=== PATIENT | male | born 1990 | race Caucasian/White ===

== ENCOUNTER 2018-07-26 06:51 | Emergency (ER) | payer OTHER ==
[~2018-07-26] VITALS: Ht 177.8 cm; Wt 122.5 kg
[~2018-07-26 06:51] MED LIST: ACET500 PO; ALBIPROI INH; ALBU3IS INH; ALBU90OI INH; ALPR1 PO; ASPI325EC PO; HYDACE5 PO; IBUP600 PO; IBUP800 PO; META800 PO; NAPR500EC PO; NO RX MEDS; OXYACE7.5T PO; OXYC5 PO; PANT20 PO; Percocet 5-3251 EACH PO; Prednisone20 MG PO; RXOXYACE PO; TRAM50 PO; Zithromax250 MG PO
[2018-07-26] MEDS ORDERED: Oxycodone HCl20 M1 PO (07:09)
[2018-07-26] MEDS ORDERED: ESCI10 PO (07:09)
[2018-07-26 07:53] LABS: BASOPHILS ABSOLUTE AUTO 0.05 K/mm3 (0.00-0.23); BASOPHILS PERCENT AUTO 1 % (0-2); EOSINOPHILS ABSOLUTE AUTO 0.94 K/mm3 (0.00-0.68); EOSINOPHILS PERCENT AUTO 9 % (0-6); Hematocrit 41.7 % (37.0-53.0); Hemoglobin 13.7 g/dL (13.5-17.5); IMMATURE GRAN ABSOLUTE AUTO 0.04 K/mm3 (0.00-0.10); IMMATURE GRAN PERCENT AUTO 0 % (0-1); LYMPHOCYTES ABSOLUTE AUTO 2.63 K/mm3 (0.84-5.20); LYMPHOCYTES PERCENT AUTO 24 % (21-46); MONOCYTES ABSOLUTE AUTO 0.89 K/mm3 (0.16-1.47); MONOCYTES PERCENT AUTO 8 % (4-13); Mean Corpuscular HGB 27.5 pg (26.0-34.0); Mean Corpuscular HGB Conc 32.9 g/dL (31.5-36.5); Mean Corpuscular Volume 84 fL (80-100); Mean Platelet Volume 9.5 fL (9.1-12.4); NEUTROPHILS ABSOLUTE AUTO 6.23 K/mm3 (1.96-9.15); NEUTROPHILS PERCENT AUTO 58 % (41-73); Platelet Count 333 K/mm3 (150-400); RDW Coefficient Variation 12.9 % (11.7-14.2); Red Blood Cell Count 4.99 M/mm3 (4.30-5.90); White Blood Cell Count 10.78 K/mm3 (4.00-11.30)
[2018-07-26 08:15] LABS: Alanine Aminotransfer (ALT/SGP 25 U/L (12-78); Albumin, Blood 3.5 g/dL (3.4-5.0); Albumin/Globulin Ratio 1.1 (0.8-1.8); Alk Phos 94 U/L (50-136); Anion Gap 8 mmol/L (6-16); Aspartate Aminotrans (AST/SGOT 13 U/L (12-37); Bilirubin, Total 0.4 mg/dL (0.1-1.0); Blood Urea Nitrogen 13 mg/dL (8-24); Bun/Creatinine Ratio 17.4 (12.0-20.0); CO2, Blood 27 mmol/L (21-32); Calcium, Blood 8.4 mg/dL (8.5-10.1); Chloride, Blood 105 mmol/L (98-108); Creatinine, Blood 0.75 mg/dL (0.60-1.20); Globulin, Blood 3.2 g/dL (2.2-4.0); Glomerular Filtration Rate >60 (60-); Glucose, Blood 107 mg/dL (70-99); Potassium, Blood 3.2 mmol/L (3.5-5.5); Sodium, Blood 140 mmol/L (136-145); Total Protein, Blood 6.7 g/dL (6.4-8.2); Troponin I <0.015 ng/mL (0.000-0.040)
[2018-07-26 09:04] LABS: Source, Urine Clean Catch
[2018-07-26 09:09] LABS: Bilirubin, Urine Neg (Neg); Blood, Urine Neg (Neg); Glucose Qualitative, Urine Neg (Neg); Ketones, Urine Neg (Neg); Leukocyte Esterase, Urine Neg (Neg); Nitrite, Urine Neg (Neg); Protein, Urine Neg (Neg); Urobilinogen, Urine NORM (Normal)
[2018-07-26 09:27] LABS: Appearance, Urine Clear (Clear); Color, Urine Yellow (P-Yellow)
[2018-07-26] MEDS ORDERED: K-Dur 20 meq T20 MEQ PO (09:59)
== END 2018-07-26 10:06 | disposition home or self-care (01) ==
LOC: ER 06:51
PROVIDERS: Physician Assistant
DX: R00.2 Palpitations (principal); E87.6 Hypokalemia; Z79.899 Other long term (current) drug therapy; Z87.891 Personal history of nicotine dependence
CPT/HCPCS: 36415; 71046; 80053; 81003; 84484; 85025; 93005; 93010; 99285-25

== ENCOUNTER 2018-07-31 05:01 | Emergency (ER) | payer OTHER ==
[~2018-07-31] VITALS: Ht 175.3 cm; Wt 122.5 kg
[~2018-07-31 05:01] MED LIST changes: +ESCI10 PO; +K-Dur 20 meq T20 MEQ PO; +Oxycodone HCl20 M1 PO
[2018-07-31 05:57] LABS: BASOPHILS ABSOLUTE AUTO 0.04 K/mm3 (0.00-0.23); BASOPHILS PERCENT AUTO 0 % (0-2); EOSINOPHILS ABSOLUTE AUTO 0.34 K/mm3 (0.00-0.68); EOSINOPHILS PERCENT AUTO 3 % (0-6); Hematocrit 43.9 % (37.0-53.0); Hemoglobin 14.5 g/dL (13.5-17.5); IMMATURE GRAN ABSOLUTE AUTO 0.03 K/mm3 (0.00-0.10); IMMATURE GRAN PERCENT AUTO 0 % (0-1); LYMPHOCYTES ABSOLUTE AUTO 1.89 K/mm3 (0.84-5.20); LYMPHOCYTES PERCENT AUTO 18 % (21-46); MONOCYTES ABSOLUTE AUTO 0.86 K/mm3 (0.16-1.47); MONOCYTES PERCENT AUTO 8 % (4-13); Mean Corpuscular HGB 27.2 pg (26.0-34.0); Mean Corpuscular Volume 82 fL (80-100); Mean Platelet Volume 9.9 fL (9.1-12.4); NEUTROPHILS ABSOLUTE AUTO 7.35 K/mm3 (1.96-9.15); NEUTROPHILS PERCENT AUTO 70 % (41-73); Platelet Count 337 K/mm3 (150-400); RDW Coefficient Variation 12.9 % (11.7-14.2); RDW Standard Deviation 38.4 fL (35.1-46.3); Red Blood Cell Count 5.34 M/mm3 (4.30-5.90); White Blood Cell Count 10.51 K/mm3 (4.00-11.30)
[2018-07-31 06:23] LABS: Alanine Aminotransfer (ALT/SGP 25 U/L (12-78); Albumin, Blood 3.9 g/dL (3.4-5.0); Albumin/Globulin Ratio 1.1 (0.8-1.8); Alk Phos 100 U/L (50-136); Anion Gap 10 mmol/L (6-16); Aspartate Aminotrans (AST/SGOT 16 U/L (12-37); Bilirubin, Total 0.5 mg/dL (0.1-1.0); Blood Urea Nitrogen 13 mg/dL (8-24); Bun/Creatinine Ratio 18.7 (12.0-20.0); CO2, Blood 25 mmol/L (21-32); Chloride, Blood 104 mmol/L (98-108); Creatinine, Blood 0.69 mg/dL (0.60-1.20); Globulin, Blood 3.7 g/dL (2.2-4.0); Glomerular Filtration Rate >60 (60-); Glucose, Blood 102 mg/dL (70-99); Potassium, Blood 3.8 mmol/L (3.5-5.5); Sodium, Blood 139 mmol/L (136-145); Total Protein, Blood 7.6 g/dL (6.4-8.2)
[2018-07-31] MEDS ORDERED: Protonix40 MG PO (07:04)
== END 2018-07-31 07:16 | disposition home or self-care (01) ==
LOC: ER 05:01
PROVIDERS: Emergency Medicine
DX: Z87.891 Personal history of nicotine dependence (principal)
CPT/HCPCS: 36415; 80053; 83690; 85025; 93005; 93010; 99284-25; C9113; J2405

== ENCOUNTER 2019-12-05 00:24 | Emergency (ER) | payer OTHER ==
[~2019-12-05] VITALS: Ht 177.8 cm; Wt 117.9 kg
[~2019-12-05 00:24] MED LIST changes: +Protonix40 MG PO
== END 2019-12-05 01:25 | disposition left against medical advice (07) ==
LOC: ER 00:24
DX: S60.511A Abrasion of right hand, initial encounter (principal); F17.200 Nicotine dependence, unspecified, uncomplicated; W26.9XXA Contact with unspecified sharp object(s), initial encounter
CPT/HCPCS: 99283

== ENCOUNTER → 2020-01-10 | Outpatient (CLI) | payer OTHER | END | disposition home or self-care (01) | LOC: LAB SHORT 15:27 → LAB EV 15:27 | DX: J06.9 Acute upper respiratory infection, unspecified (principal); Z20.828 Contact with and (suspected) exposure to other viral communicable diseases | CPT/HCPCS: U0003 ==

== ENCOUNTER 2020-08-04 01:15 | Emergency (ER) | payer OTHER ==
[~2020-08-04] VITALS: Ht 177.8 cm; Wt 122.5 kg
== END 2020-08-04 03:16 | disposition home or self-care (01) ==
LOC: ER 01:15
DX: S86.811A Strain of other muscle(s) and tendon(s) at lower leg level, right leg, initial encounter (principal); F17.200 Nicotine dependence, unspecified, uncomplicated; X50.1XXA Overexertion from prolonged static or awkward postures, initial encounter; Y92.89 Other specified places as the place of occurrence of the external cause; Y99.0 Civilian activity done for income or pay
CPT/HCPCS: 29505; 73562-RT; 96372-59; 99283-25; A9270; J1885

== ENCOUNTER 2022-01-10 16:06 | Emergency (ER) | payer OTHER ==
[~2022-01-10] VITALS: Ht 175.3 cm; Wt 117.9 kg
== END 2022-01-10 19:06 | disposition left against medical advice (07) ==
LOC: ER 16:06
DX: R11.2 Nausea with vomiting, unspecified (principal); R07.9 Chest pain, unspecified; R20.0 Anesthesia of skin; R19.7 Diarrhea, unspecified; Z53.21 Procedure and treatment not carried out due to patient leaving prior to being seen by health care provider
CPT/HCPCS: 99281

== ENCOUNTER 2023-05-30 14:30 | Emergency (ER) | payer OTHER ==
[~2023-05-30] VITALS: Ht 172.7 cm; Wt 115.7 kg
[2023-05-30 14:44] VITALS: BP 141/89
[2023-05-30 16:18] LABS: BASOPHILS ABSOLUTE AUTO 0.04 K/mm3 (0.00-0.23); BASOPHILS PERCENT AUTO 0 % (0-2); EOSINOPHILS ABSOLUTE AUTO 0.09 K/mm3 (0.00-0.68); EOSINOPHILS PERCENT AUTO 1 % (0-6); Hematocrit 47.3 % (37.0-53.0); Hemoglobin 15.3 g/dL (13.5-17.5); IMMATURE GRAN ABSOLUTE AUTO 0.04 K/mm3 (0.00-0.10); IMMATURE GRAN PERCENT AUTO 0 % (0-1); LYMPHOCYTES ABSOLUTE AUTO 2.08 K/mm3 (0.84-5.20); LYMPHOCYTES PERCENT AUTO 20 % (21-46); MONOCYTES ABSOLUTE AUTO 1.29 K/mm3 (0.16-1.47); MONOCYTES PERCENT AUTO 13 % (4-13); Mean Corpuscular HGB 27.6 pg (26.0-34.0); Mean Corpuscular HGB Conc 32.3 g/dL (31.5-36.5); Mean Corpuscular Volume 85 fL (80-100); Mean Platelet Volume 9.3 fL (9.1-12.4); NEUTROPHILS ABSOLUTE AUTO 6.72 K/mm3 (1.96-9.15); NEUTROPHILS PERCENT AUTO 65 % (41-73); Platelet Count 348 K/mm3 (150-400); RDW Coefficient Variation 12.8 % (11.7-14.2); RDW Standard Deviation 40.1 fL (35.1-46.3); Red Blood Cell Count 5.54 M/mm3 (4.30-5.90); White Blood Cell Count 10.26 K/mm3 (4.00-11.30)
[2023-05-30 16:38] LABS: Albumin, Blood 3.9 g/dL (3.4-5.0); Bilirubin, Total 0.7 mg/dL (0.1-1.0); Bun/Creatinine Ratio 15.8 (12.0-20.0); Calcium, Blood 9.3 mg/dL (8.5-10.1); Creatinine, Blood 0.63 mg/dL (0.60-1.20); Potassium, Blood 3.9 mmol/L (3.5-5.5); Total Protein, Blood 7.9 g/dL (6.4-8.2)
[2023-05-30] MEDS ORDERED: CEPH500 PO (16:49)
[2023-05-31] MEDS ORDERED: Percocet 10-321 EACH PO (13:32)
== END 2023-05-30 17:30 | disposition home or self-care (01) ==
LOC: ER 14:30
PROVIDERS: Physician Assistant
DX: L02.512 Cutaneous abscess of left hand (principal); S60.852A Superficial foreign body of left wrist, initial encounter; F17.200 Nicotine dependence, unspecified, uncomplicated; X58.XXXA Exposure to other specified factors, initial encounter; Z96.641 Presence of right artificial hip joint
CPT/HCPCS: 10120; 73110; 73130; 73201; 80053; 85025; 96365-59; 96374-59; 99284-25; J0696; Q9967

== ENCOUNTER 2023-05-31 11:19 | Inpatient (IN) | payer OTHER ==
[~2023-05-31] VITALS: Ht 175.3 cm; Wt 116.7 kg
[~2023-05-31 11:19] MED LIST changes: +CEPH500 PO
[2023-05-31 12:35] LABS: BASOPHILS ABSOLUTE AUTO 0.03 K/mm3 (0.00-0.23); BASOPHILS PERCENT AUTO 0 % (0-2); EOSINOPHILS ABSOLUTE AUTO 0.03 K/mm3 (0.00-0.68); EOSINOPHILS PERCENT AUTO 0 % (0-6); Hemoglobin 15.4 g/dL (13.5-17.5); IMMATURE GRAN ABSOLUTE AUTO 0.03 K/mm3 (0.00-0.10); IMMATURE GRAN PERCENT AUTO 0 % (0-1); LYMPHOCYTES ABSOLUTE AUTO 1.15 K/mm3 (0.84-5.20); LYMPHOCYTES PERCENT AUTO 12 % (21-46); MONOCYTES ABSOLUTE AUTO 1.08 K/mm3 (0.16-1.47); MONOCYTES PERCENT AUTO 11 % (4-13); Mean Corpuscular HGB 27.9 pg (26.0-34.0); Mean Corpuscular HGB Conc 32.8 g/dL (31.5-36.5); Mean Corpuscular Volume 85 fL (80-100); Mean Platelet Volume 9.5 fL (9.1-12.4); NEUTROPHILS ABSOLUTE AUTO 7.14 K/mm3 (1.96-9.15); NEUTROPHILS PERCENT AUTO 76 % (41-73); Platelet Count 366 K/mm3 (150-400); RDW Coefficient Variation 12.9 % (11.7-14.2); RDW Standard Deviation 40.2 fL (35.1-46.3); Red Blood Cell Count 5.52 M/mm3 (4.30-5.90); White Blood Cell Count 9.46 K/mm3 (4.00-11.30)
[2023-05-31 12:48] LABS: Albumin, Blood 4.1 g/dL (3.4-5.0); Albumin/Globulin Ratio 0.9 (0.8-1.8); Bilirubin, Total 0.8 mg/dL (0.1-1.0); Bun/Creatinine Ratio 17.5 (12.0-20.0); Calcium, Blood 9.4 mg/dL (8.5-10.1); Creatinine, Blood 0.63 mg/dL (0.60-1.20); Globulin, Blood 4.4 g/dL (2.2-4.0); Potassium, Blood 3.8 mmol/L (3.5-5.5); Total Protein, Blood 8.5 g/dL (6.4-8.2)
[2023-05-31] MEDS ORDERED: Percocet 10-321 EACH PO (13:32)
[2023-05-31 15:55] VITALS: BP 146/79
--- NOTE | 2023-05-31 19:14 | NUR ---
SHIFT SUMMARY S/P L HAND CELLULITIS, A/OX4, VSS, TOLERATING PO, INDEPENDENT IN HIS ROOM, ABLE TO MAKE NEEDS KNOWN, MEDICATING FOR PAIN PER EMAR. NO ACUTE EVENTS THIS SHIFT, CALL LIGHT IN REACH.
[2023-05-31 20:57] VITALS: BP 137/83
[2023-06-01 02:37] VITALS: BP 111/67
[2023-06-01 04:05] LABS: Hematocrit 40.9 % (37.0-53.0); Hemoglobin 13.5 g/dL (13.5-17.5); Mean Corpuscular HGB 27.8 pg (26.0-34.0); Mean Corpuscular Volume 84 fL (80-100); Mean Platelet Volume 9.3 fL (9.1-12.4); Platelet Count 303 K/mm3 (150-400); RDW Coefficient Variation 12.8 % (11.7-14.2); RDW Standard Deviation 39.5 fL (35.1-46.3); Red Blood Cell Count 4.86 M/mm3 (4.30-5.90); White Blood Cell Count 8.42 K/mm3 (4.00-11.30)
[2023-06-01 04:31] LABS: Bun/Creatinine Ratio 23.3 (12.0-20.0); Calcium, Blood 8.7 mg/dL (8.5-10.1); Creatinine, Blood 0.65 mg/dL (0.60-1.20); Potassium, Blood 3.3 mmol/L (3.5-5.5)
--- NOTE | 2023-06-01 04:39 | NUR ---
SHIFT SUMMARY VSS. PT HAS NOT SLEPT T/O THE NIGHT D/T PAIN. DIFFICULT PAIN CONTROL NOTED, ROTATING COLD AND HEAT THERAPY, ALONG SIDE DILAUDID, OXY, TORADOL, AND TYLENOL. CIRCULATION AND SENSATION REMAINS INTACT IN LEFT HAND. REDDNESS OF THE HAND APPEARS TO HAVE RECEEDED BUT SWELLING HAS INCREASED, PT STRUGGLING TO KEEP EXTREMITY ELEVATED. VOIDING W/O DIFFICULTY AND TOLLERATED PO INTAKE W/O N/V. PT BECAME NPO AT 0300 FOR POSSIBLE TRANSFER FOR PROCEEDURE TODAY. NO ACUTE EVENTS NOTED.
[2023-06-01 07:13] VITALS: BP 120/67
[2023-06-01 12:43] LABS: Vancomycin, Trough 9.4 ug/mL (5.0-10.0)
[2023-06-01 16:11] VITALS: BP 132/78
--- NOTE | 2023-06-01 18:50 | NUR ---
SHIFT SUMMARY S/P L HAND CELLULITIS, A/OX4, VSS, TOLERATING PO, PAIN WELL MANAGED WITH PATIENT REPORTING A SLOW REDUCTION IN HIS OVERALL PAIN T/O THE SHIFT TODAY, SWELLING AND REDNESS LOOK TO BE LOWER THAN THEY WERE YESTERDAY WHEN HE WAS ADMITTED. NO ACUTE EVENTS THIS SHIFT, CALL LIGHT IN REACH.
[2023-06-01 20:18] VITALS: BP 128/77
[2023-06-02 05:50] VITALS: BP 142/90
[2023-06-02 05:58] LABS: Hematocrit 39.6 % (37.0-53.0); Hemoglobin 12.7 g/dL (13.5-17.5); Mean Corpuscular HGB 27.8 pg (26.0-34.0); Mean Corpuscular HGB Conc 32.1 g/dL (31.5-36.5); Mean Corpuscular Volume 87 fL (80-100); Mean Platelet Volume 9.5 fL (9.1-12.4); Platelet Count 298 K/mm3 (150-400); RDW Coefficient Variation 12.5 % (11.7-14.2); RDW Standard Deviation 39.8 fL (35.1-46.3); Red Blood Cell Count 4.57 M/mm3 (4.30-5.90); White Blood Cell Count 9.13 K/mm3 (4.00-11.30)
--- NOTE | 2023-06-02 06:09 | NUR ---
SHIFT SUMMARY VSS. PT GOT MINIMAL SLEEP T/O THE NIGHT. PT REPORTS PAIN CONTROL IS SLIGHTLY BETTER, BUT HE REMAINS ON THE UPPER END OF THE PAIN SCALE 6-8. REDDNESS HAS SIGNIFIGANTLY IMPROVED, BUT SWELLING REMAINS. LIMMITED ROM IN WRIST D/T THIS. PT SWITCHED BETWEEN ICE AND HEAT T/O THE NIGHT. PT HAS BEEN NPO SINCE 0000 FOR POTENTIAL ORTHO CONSULT TODAY. NO ACUTE EVENTS NOTED.
[2023-06-02 06:24] LABS: Bun/Creatinine Ratio 24.8 (12.0-20.0); Calcium, Blood 8.5 mg/dL (8.5-10.1); Creatinine, Blood 0.61 mg/dL (0.60-1.20); Potassium, Blood 3.8 mmol/L (3.5-5.5)
[2023-06-02 07:15] VITALS: BP 133/74
[2023-06-02 14:25] LABS: Vancomycin, Trough 11.5 ug/mL (5.0-10.0)
[2023-06-02 14:45] VITALS: BP 136/85
--- NOTE | 2023-06-02 18:11 | NUR ---
PT REPORTED THAT HE ONLY WANTS STAFF TO TALK WITH HIS MOTHER. PT DECLINED TO SET UP A CODE WORD FOR SAFETY. HE ALSO STATES THE PERSON HE WAS CONCERNED ABOUT TRYING TO GET INFORMATION SHOULD NO LONGER BE ATTEMPTING TO CALL.
[2023-06-02 19:13] VITALS: BP 133/69
--- NOTE | 2023-06-02 19:37 | NUR ---
SHIFT SUMMARY PT IS TOLERATING IV ABX WELL. PT REPORTS IMPROVED ROM TO L HAND. PAIN MANAGED WITH OXY, TYLENOL, DILAUDID AND TORADOL. PT IS INDEPENDENT IN THE ROOM. REPORT GIVEN TO KATHERIN KATE.
--- NOTE | 2023-06-03 00:17 | NUR ---
T/C PLACED TO PHARMACY. SPOKE WITH PHARMACIST CALVIN REGARDING VANCO ABX. PT'S IV INFILTRATED IN LEFT ARM AND ADMINISTRATION STOPPED. PT HAD A POWERGLIDE PLACED IN RIGHT UPPER EXTREMITY. VANCO RESTARTED AT 0004. NOTIFIED CALVIN AND SHE STATED SHE WOULD UPDATE THE ADMIN TIME IN THE EMAR. THIS RN ADJUSTED AND UPDATED THE EMAR TO REFLECT TIME OF VANCO ADMIN.
[2023-06-03 02:32] VITALS: BP 143/95
--- NOTE | 2023-06-03 04:47 | NUR ---
SHIFT SUMMARY NOC. PT A/O X4 THIS SHIFT. PT INDEPENDENT IN THE ROOM AND IS VOIDING. PT TOLERATING PO INTAKE. PT HAD A POWERGLIDE PLACED IN RIGHT UPPER EXTREMITY THIS SHIFT. PT MEDICATED FOR PAIN WITH DIFFICULTY GETTING PAIN DOWN. PT REPORTED GOOD RELIEF WITH DILAUDID. LEFT HAND SWELLING AND REDNESS APPEARS TO HAVE IMPROVED. PT REPORTS IMPROVED ROM AND DENIES N/T. PT RESTED FOR BREIF PERIODS WITH CALL LIGHT IN REACH.
--- NOTE | 2023-06-03 14:01 | NUR ---
REPORT GIVEN TO MELISA KATE. PT SITTING IN BED AT TIME OF REPORT. CALL LIGHT WITHIN REACH. PT DENIED QUESTIONS/CONCERNS.
--- NOTE | 2023-06-03 14:01 | NUR ---
ASSUMED CARE OF PT FROM JASPER Proctor RN PT SITTING ON EDGE OF BED, DENIES ANY NEEDS AT THIS TIME. INDEPENDENT IN ROOM.
--- NOTE | 2023-06-03 15:24 | NUR ---
02 SATS 02 SATS 87% ON 2L. 02 INCREASED BACK TO 3L. SATS NOW 91%. PT HAS BEEN ENCOURAGED TO AMBULATED IN ROOM AND USE IS.
[2023-06-03 16:09] LABS: Vancomycin, Trough 13.2 ug/mL (5.0-10.0)
[2023-06-03 16:23] VITALS: BP 141/86
--- NOTE | 2023-06-03 18:10 | NUR ---
SUMMARY NO ACUTE CHANGES SINCE TAKING OVER CARE OF PT. INDEPENDENT IN ROOM. IV ABX INFUSING PER ORDERS. MEDICATED PER ORDERS FOR PAIN. CALL LIGHT IN REACH.
[2023-06-03 19:55] VITALS: BP 138/89
[2023-06-04 02:08] VITALS: BP 146/85
--- NOTE | 2023-06-04 05:01 | NUR ---
SHIFT SUMMARY NOC. PT A/O X4. PT MEDICATED FOR PAIN WITH IMPROVED RELIEF. PT HAS IMPROVED SWELLING, REDNESS, AND IMPROVED RANGE OF MOTION IN HIS LEFT HAND. PT INDEPENDENT IN THE ROOM AND CALLS APPROPRIATLY. PT RESTED BRIEF PERIODS WITH CALL LIGHT IN REACH.
[2023-06-04 07:46] VITALS: BP 110/78
[2023-06-04] MEDS ORDERED: HYDR1TAB94 PO (12:15)
[2023-06-04] MEDS ORDERED: SULTRIDS PO (12:16)
--- NOTE | 2023-06-04 12:46 | NUR ---
DISCHARGE PT DISCHARGED HOME FROM UNIT AT APROX 1215. PT GIVEN WRITTEN AND VERBAL DISCHARGE INSTRUCTIONS AND VERBALIZED UNDERSTANDING OF THESE INSTRUCTIONS. POWER GLIDE REMOVED. NEW RX FOR ABX FAXED TO PHARMACY. HARD COPY FOR PAIN MEDICATION GIVEN TO PT. DECLINED ASSISTANCE TO CAR. AMBULATED INDEPENDENTLY.
== END 2023-06-04 12:31 | disposition home or self-care (01) | DRG 603 ==
LOC: ER 11:19 → SURS 13:54 → MEDS 13:54 → SURS 15:53
PROVIDERS: Pharmacist; Physician Assistant; ADMIT Internal Medicine
PROC: 0J9K3ZZ Drainage of Left Hand Subcutaneous Tissue and Fascia, Percutaneous Approach (ICD-10-PCS; principal; 2023-05-31)
DX: L03.114 Cellulitis of left upper limb (principal); F17.290 Nicotine dependence, other tobacco product, uncomplicated; G89.29 Other chronic pain; M25.559 Pain in unspecified hip; M54.9 Dorsalgia, unspecified; B95.62 Methicillin resistant Staphylococcus aureus infection as the cause of diseases classified elsewhere; E87.6 Hypokalemia; Z96.642 Presence of left artificial hip joint; Z79.891 Long term (current) use of opiate analgesic
CPT/HCPCS: 20604; 36415; 80048; 80053; 80202; 85025; 85027; 87070; 87075; 87077; 87147; 87186; 87205; 96365-59; 96366-59; 96375-59; 99284-25; A9270; C1751; J0690; J1170; J1885; J3370; J3480; J7050